=== PATIENT | male | born 1985 | race Caucasian/White ===

== ENCOUNTER 2018-11-25 23:34 | Emergency (ER) | payer MEDICAID ==
[~2018-11-25] VITALS: Ht 170.2 cm; Wt 79.0 kg
[2018-11-25 23:41] VITALS: BP 113/79
[2018-11-26] MEDS ORDERED: ondansetron 4mg rapidly disintigrating tab PO ONE (01:15)
[2018-11-26] MEDS ORDERED: LIDOcaine 5% patch TP ONE (01:15)
[2018-11-26] MEDS ORDERED: HYDROcodone/acetaminophen 5mg/325mg tablet PO ONE (01:15)
[2018-11-26] MEDS ORDERED: ketorolac tromethamine 15mg/ml inj. IM ONE (01:15)
[2018-11-26] MEDS ORDERED: acetaminophen 325mg tablet PO ONE (01:15)
[2018-11-26] MEDS ORDERED: HYDR-3965 PO (01:17)
[2018-11-26] MEDS ORDERED: LIDO700A32 TOP (01:17)
== END 2018-11-26 01:50 | disposition home or self-care (01) ==
LOC: ER 23:34
DX: S00.33XA Contusion of nose, initial encounter (principal); S50.02XA Contusion of left elbow, initial encounter; S00.511A Abrasion of lip, initial encounter; R07.81 Pleurodynia; F12.90 Cannabis use, unspecified, uncomplicated; Z88.6 Allergy status to analgesic agent; Z79.899 Other long term (current) drug therapy; V86.56XA Driver of dirt bike or motor/cross bike injured in nontraffic accident, initial encounter; Y93.89 Activity, other specified; Y92.488 Other paved roadways as the place of occurrence of the external cause; Y99.8 Other external cause status
CPT/HCPCS: 71101; 73080; 96372; 99284; J1885